=== PATIENT | male | born 1965 | race Asian ===

== ENCOUNTER 2018-01-18 09:15 | Emergency (ER) | payer BC ==
[~2018-01-18] VITALS: Ht 172.7 cm; Wt 75.0 kg
[2018-01-18] MEDS ORDERED: MORPHINE SULFATE 4 MG/ML CPJ (NOT FOR IM USE) IV STA (09:50)
[2018-01-18] MEDS ORDERED: SODIUM CHLORIDE 0.9% 1,000 ML IV ONE (09:50)
[2018-01-18] MEDS ORDERED: ONDANSETRON HCL 4MG/2ML VIAL IV STA (09:50)
[2018-01-18] MEDS ORDERED: KETOROLAC 30MG/ML VIAL IV STA (09:50)
[2018-01-18] MEDS ORDERED: VALACYCLOVIR HCL 500MG TABLET PO SCH (10:00)
[2018-01-18 10:09] LABS: HEMATOCRIT. 45.9 % (42.0-52.0); HEMOGLOBIN. 15.6 g/dL (14.0-18.0); MEAN CORPUSCULAR HEMOGLOBIN 28.8 pg (28.0-32.0); MEAN CORPUSCULAR VOLUME 84.5 fL (80.0-94.0); MEAN PLATELET VOLUME 9.7 fl (7.4-10.4); PLATELET 107 x1000/uL (130-400); RED BLOOD CELL COUNT 5.43 mill/uL (4.7-6.1); RED CELL DISTRIBUTION WIDTH 13.3 % (11.6-14.6)
[2018-01-18 10:14] LABS: CHLORIDE 102 mEq/L (98-107)
[2018-01-18 10:15] LABS: PROTHROMBIN TIME 10.4 sec (9.1-11.1)
[2018-01-18 10:56] LABS: PLATELET ESTIMATE DECREASED
[2018-01-18 12:13] VITALS: BP 119/70
== END 2018-01-18 12:14 | disposition home or self-care (01) ==
LOC: ER 09:15
DX: B02.9 Zoster without complications (principal); R94.31 Abnormal electrocardiogram [ECG] [EKG]
CPT/HCPCS: 36415; 80053; 84484; 85025; 85610; 93005; 96374; 96375; 99285; J1885; J2270; J2405; J7030; Z7610

== ENCOUNTER 2020-04-29 11:30 | Emergency (ER) | payer BC, SELFPAY | END 2020-04-29 12:28 | disposition home or self-care (01) | LOC: ER 11:39 | DX: Z20.828 Contact with and (suspected) exposure to other viral communicable diseases (principal); Z53.21 Procedure and treatment not carried out due to patient leaving prior to being seen by health care provider | CPT/HCPCS: 87635 ==